=== PATIENT | female | born 1950 | race Caucasian/White ===

== ENCOUNTER 2024-01-15 14:57 | Outpatient (CLI) | payer MEDICARE, SELFPAY ==
--- NOTE | ~2024-01-15 | MM_ITS ---
EXAMINATION: MM screening anushka BI w rubén HISTORY: Screening mammogram TECHNIQUE: Craniocaudal and mediolateral oblique 3-D tomosynthesis images were obtained and synthetic 2-D images were generated. CAD analysis was submitted and interpreted. COMPARISON: No prior mammogram is available for comparison at this institution. BREAST PARENCHYMAL COMPOSITION:Not Dense. There are scattered areas of fibroglandular density. FINDINGS: No suspicious mass, calcification, or architectural distortion are identified in either brady ast to suggest malignancy. There has been no suspicious interval change. IMPRESSION: No mammographic evidence of malignancy. Recommend routine screening mammography in one year. BI-RADS Category 1: Negative Reviewed, dictated and finalized at location .
== END 2024-01-15 14:58 ==
LOC: MICIMG 14:58
PROVIDERS: PCP Family Medicine; Visit Provider Family Medicine
DX: Z12.31 Encounter for screening mammogram for malignant neoplasm of breast (principal)
CPT/HCPCS: 77063; 77067

== ENCOUNTER 2024-02-15 14:33 | Outpatient (CLI) | payer MEDICARE, SELFPAY ==
--- NOTE | ~2024-02-15 | DEXA_ITS ---
Bone Density Report Name: PITER JONES Age: 73 Sex: Female Ethnicity: White Date of : 1950 Indication: postmenopausal; screening for osteoporosis; parental hip fracture; height loss; hysterectomy; Referring Provider: CELY MIRZA Study: Bone densitometry was performed. Exam Date: February 15, 2024 Accession number: [id number] Bone Density: Region BMD T-score Z-score Classification AP Spine(L1-L4) 1.004 -0.4 1.8 Normal Femoral Neck (Left) 0.765 -0.8 1.1 Normal Total Hip (Left) 1.003 0.5 2.1 Normal Femoral Neck (Right) 0.680 -1.5 0.3 Osteopenia Total Hip (Right) 0.905 -0.3 1.3 Normal Total Hip Mean 0.954 0.1 1.7 Normal World Health Organization criteria for BMD impression classify patients as: Normal (T-score at or above -1.0), Osteopenia (T-score between -1.0 and -2.5), or Osteoporosis (T-score at or below -2.5). 10-year Fracture Risk(1): Major Osteoporotic Fracture 16% Hip Fracture 4.0% Reported Risk Factors: [place] (), Neck BMD=0.680, BMI=29.9, parental fracture (1) FRAX(R) Version 3.08. Fracture probability calculated for an untreated patient. Fracture probability may be lower if the patient has received treatment. Clinical Information Provided by Patient: Parent has had a hip fracture Has used the following medications: Vitamin D, Calcium Has the following medical conditions: Hysterectomy Patient maximum height was 66.0 Menopause Age: 50 No regular weight bearing exercise Drinks caffeinated beverages Onset of menses at age 18 Number of children 3 Impression: The patient has low bone mass, based on the Right Femoral Neck T-score. The patient has an estimated ten-year risk of hip fracture of 4% and an estimated ten-year risk of major fracture of 16%, based on the WHO FRAX algorithm. The patient has risk factors, including: parental hip fracture. Discussion: BONE DENSITY IS LOW AT ONE OR MORE SKELETAL SITES. THE PATIENT'S BMD AND CLINICAL RISK FACTORS CONTRIBUTE TO THIS PATIENT'S INCREASED RISK OF FRACTURE. This patient's lowest T-score is low at one or more skeletal sites. It meets the World Health Organization's (WHO) criteria for ?low bone mass? (T-score between -1.0 and -2.5). The patient's 10-year risk of hip fracture as calculated by FRAX exceeds the threshold where pharmacological therapy is recommended by the National Osteoporosis Foundation (NOF). However, all treatment decisions require clinical judgment and consideration of individual patient factors, including patient preferences, comorbidities, previous drug use, risk factors not captured in the FRAX model (e.g., frailty, falls, vitamin D deficiency, increased bone turnover, interval significant decline in bone density) and possible under or overestimation of fracture risk by FRAX. T
== END 2024-02-15 14:34 | disposition home or self-care (01) ==
PROVIDERS: PCP Family Medicine; Visit Provider Family Medicine
DX: M85.89 Other specified disorders of bone density and structure, multiple sites (principal); Z78.0 Asymptomatic menopausal state; Z13.820 Encounter for screening for osteoporosis
CPT/HCPCS: 77080

== ENCOUNTER 2024-02-27 07:56 | Outpatient (CLI) | payer MEDICARE, SELFPAY ==
[2024-02-27 12:50] LABS: Basophils Absolute Auto 0.1 K/mm3 (0.0-0.1); Eosinophils Absolute Auto 0.3 K/mm3 (0-0.3); Hematocrit 44.6 % (37.0-47.0); Immature Granulocyte Absolute 0.02 K/mm3 (0.00-0.031); Immature Granulocyte Percent A 0.4 % (0-0.5); Lymphocytes Absolute Auto 1.61 K/mm3 (0.9-3.2); Lymphocytes Percent Auto 30.8 % (18.3-44.2); Mean Corpuscular HGB Conc 33.6 g/dl (32-36); Mean Corpuscular Hemoglobin 31.6 pg (26-34); Mean Corpuscular Volume 94.1 fl (80-100); Mean Platelet Volume 11.6 fl (7.4-10.4); Monocytes Absolute Auto 0.3 K/mm3 (0.1-0.6); Monocytes Percent Auto 5.7 % (2.6-8.5); Neutrophils Percent Auto 57.1 % (45.5-73.1); Platelet Count Result 155 k/mm3 (150-375); Red Blood Count 4.74 M/mm3 (4.2-5.4); Red Cell Distribution Width 13.8 % (11.5-14.5); White Blood Count 5.2 K/mm3 (4.5-10.0)
[2024-02-27 12:59] LABS: Alanine Aminotransferase 331 U/L (6-35); Albumin Level 4.2 g/dL (3.5-5.1); Alkaline Phosphatase 90 U/L (38-126); Anion Gap 8 mmol/L (4-12); Aspartate Amino Transferase 163 U/L (14-36); Bilirubin,Total 0.5 mg/dL (0.2-1.3); Blood Urea Nitrogen 22 mg/dL (7-17); Calcium 9.5 mg/dL (8.4-10.2); Carbon Dioxide 28 mmol/L (22-30); Chloride 104 mmol/L (98-107); Cholesterol 146 mg/dL (0-200); Estimated Glomerular Filt Rate > 60; Glucose 95 mg/dL (65-110); HDL Direct 45 mg/dL; Potassium 3.9 mmol/L (3.4-5.0); Sodium 140 mmol/L (137-145); Triglycerides 94 mg/dL (<150)
[2024-02-27 13:09] LABS: LDL Cholesterol Direct 81 mg/dL
[2024-02-29 13:20] LABS: Hepatitis B Surface Antigen Negative (Negative)
[2024-02-29 13:26] LABS: HAV RESULT Negative (Negative); Hepatitis B Core IgM Result Negative (Negative)
[2024-02-29 13:38] LABS: Hepatitis C Virus Antibody Negative (Negative)
== END 2024-02-27 07:57 | disposition home or self-care (01) ==
PROVIDERS: Nurse Practitioner Family; PCP Family Medicine; Visit Provider Family Medicine
DX: R79.89 Other specified abnormal findings of blood chemistry (principal)
CPT/HCPCS: 36415; 80053; 80061; 80074; 82248; 82728; 85025

== ENCOUNTER 2024-02-27 08:13 | Outpatient (CLI) | payer MEDICARE, SELFPAY ==
--- NOTE | ~2024-02-27 | US_ITS ---
Limited ABDOMINAL ULTRASOUND Ordering provider: Courtney Nobles MD History: . elevated lfts . Comparison: None. FINDINGS: LIVER: Normal size and echotexture. No focal hepatic lesions or perihepatic fluid collections are summer ntified. Multiple cysts are noted with the largest measures 3.8 x 3.1 x 3 cm. Normal portal vein flow. GALLBLADDER: Unremarkable. No evidence for stones, sludge, gallbladder wall thickening or pericholecy stic fluid collections. A negative sonographic Loyd's sign was noted. BILIARY DUCTS: No evidence for intra or extrahepatic biliary dilation. Common bile duct measures 5.1 mm in diameter which is within normal limits. PANCREAS: Normal echotexture and size of the visualized portion. Tail is not demonstrated.. IMPRESSION: Multiple hepatic cysts otherwise, Unremarkable limited ultrasound of the abdomen. Reviewed, dictated and finalized at location A. IMPRESSION: Multiple hepatic cysts otherwise, Unremarkable limited ultrasound of the abdome n.
== END 2024-02-27 08:14 ==
PROVIDERS: PCP Family Medicine; Visit Provider Family Medicine
DX: R94.5 Abnormal results of liver function studies (principal)
CPT/HCPCS: 76705

== ENCOUNTER 2025-03-12 13:33 | Outpatient (CLI) | payer MEDICARE, SELFPAY ==
--- NOTE | ~2025-03-12 | MM_ITS ---
EXAMINATION: MM screening anushka BI w rubén HISTORY: Screening TECHNIQUE: Craniocaudal and mediolateral oblique 3-D tomosynthesis images were obtained and synthetic 2-D images were generated. CAD analysis was submitted and interpreted. COMPARISON: 01/15/2024 BREAST PARENCHYMAL COMPOSITION: There are scattered areas of fibroglandular density. FINDINGS: There is no evidence of suspicious mass, calcification, or architectural distortion to suggest malignancy in either breast. IMPRESSION: 1. No mammographic evidence of malignancy. 2. Recommend routine screening mammography in one year. BI-RADS Category 1: Negative Reviewed, dictated and finalized at location B.
== END 2025-03-12 13:34 | disposition home or self-care (01) ==
LOC: CHSIMG 13:35
PROVIDERS: PCP Family Medicine; Visit Provider Family Medicine
DX: Z12.31 Encounter for screening mammogram for malignant neoplasm of breast (principal)
CPT/HCPCS: 77063; 77067

== ENCOUNTER 2025-03-25 15:56 | Emergency (ER) | payer MEDICARE, SELFPAY ==
[2025-03-25 16:05] VITALS: BP 117/91; PULSE 92; RESP 16; TEMP 36.1; O2SAT 100
--- NOTE | 2025-03-25 16:18 | ED.FALL ---
HPI - Fall General Chief Complaint: Fall Stated Complaint: FALL Time Seen by Provider: 03/25/25 16:10 Mode of arrival: ambulatory Limitations: no limitations History of Present Illness HPI Narrative: 74-year-old female presents with concern of for fall. Reports prior to arrival she fell off a 4 ft retaining wall. Reports neck pain and left hand pain. She denies loss of consciousness. She denies any nose bleed, dental pain or loose teeth. MD complaint: fall Related Data Home Medications ?Medication ?Instructions ?Recorded ?Confirmed ?Last Taken ?Type ascorbic acid (vitamin C) 1,000 mg 1 g PO DAILY 06/19/23 10/30/24 Unknown History capsule aspirin 81 mg tablet,delayed 81 mg PO DAILY 06/19/23 10/30/24 Unknown History release (Adult Aspirin Regimen) calcium carbonate (Calcium 500) 500 mg PO DAILY 06/19/23 10/30/24 Unknown History cholecalciferol (vitamin D3) 50 50 mcg PO DAILY 06/19/23 10/30/24 Unknown History mcg (2,000 unit) capsule coenzyme Q10 200 mg capsule (Co 200 mg PO DAILY 06/19/23 10/30/24 Unknown History Q-10) zinc gluconate 30 mg tablet 30 mg PO DAILY 06/19/23 10/30/24 Unknown History Allergies Allergy/AdvReac Type Severity Reaction Status Date / Time codeine AdvReac Intermediate Nausea Verified 03/25/25 16:31 Review of Systems Review of Systems: CONSTITUTIONAL: Denies malaise, chills, sweats, or fever. EYES: Denies visual changes ENT: Denies nose bleed SKIN: Reports abrasions to the face MUSCULOSKELETAL: Reports neck pain and left hand pain NEUROLOGIC: Denies numbness, weakness All systems reviewed & are unremarkable except as noted in HPI and below PMFSH Surgical History Surgical History (Updated 10/30/24 @ 09:27 by Liya Acosta MA) History of knee replacement right 03/05/2024 left 08/20/2024 H/O bilateral oophorectomy H/O: hysterectomy Family History Family History Mother Carcinoma of colon Diabetes mellitus Hypertension Father Depression Heart disease Grandparent Alcohol abuse Diabetes mellitus Hypertension Heart disease Social History Social History (Reviewed 10/30/24 @ 09:27 by NELL Ford Social History: quit 1979 Smoking status: Former smoker Smoking end date: 07/16/79 Alcohol intake: current Alcohol use details: rarely Substance use: never Substance use type: does not use Lack of Transportation: No Lack of Food: Sometimes True Current Housing: I Have Housing Concerned About Future Housing: No Difficulty Paying Gas/Electric Bills: No Difficulty Paying for Meds: No Currently Unemployed: No Education: Bachelor's Degree Difficulty w/ Childcare or Family Care: No Living arrangements: with family Comments At time of signature, agree with nursing past medical, surgical, social and family history. There is no relevant family history pertinent to the presenting complaint Exam Narrative: GENERAL: Well-appearing, well-nourished, and in no acute distress. HEAD: Normocephalic, atraumatic. EYES: PERRLA, sclera clear, and EOMI. ENT: Nares clear, no epistaxis. NECK: No visible trauma CHEST: No respiratory distress. Speaks in full sentences. HEART: Regular rate and rhythm. EXTREMITIES: Left hand has Grossly Normal range of motion., Normal strength and sensation. Ecchymosis noted to the right dorsal hand SKIN: Warm, dry, no visible rash. Abrasions noted to the face NEURO: Alert and oriented x3. PSYCH: Normal mood and affect Course Course Emergency Course: Patient is aware of, understands and agrees to be transferred to the emergency room. EMS offered, patient agrees to proceed directly to the emergency department. Portions of this record may have been created with voice recognition software Level of Care: Express Care Visit Vital Signs Vital signs: Vital Signs Temperature 96.9 F L 03/25/25 16:05 Pulse Rate 92 03/25/25 16:05 Respiratory Rate 16 03/25/25 16:05 Blood Pressure 117/91 H 03/25/25 16:05 Pulse Oximetry 100 03/25/25 16:05 Temperature 96.9 F L 03/25/25 16:05 Pulse Rate 92 03/25/25 16:05 Respiratory Rate 16 03/25/25 16:05 Blood Pressure 117/91 H 03/25/25 16:05 Pulse Oximetry 100 03/25/25 16:05 Reviewed. Transfer Transfered to: [facility] Transportation: Other (Private vehicle) Transfer rationale: Fall, neck pain Accepting physician: Milad MDM - Fall MDM Narrative Medical decision making narrative: I evaluated this patient in the [facility] care. History is obtained from patient who is an independent historian and physical exam was performed.? Available medical records were reviewed. ? Patient is in no acute distress, stable for transfer to emergency room Critical Care Time Critical Care Time Critical Care Time: No Discharge Plan Discharge Clinical Impression: Neck pain Patient Disposition: Acute Care Hospital Condition: Stable Patient Language: Greenlandic Prescriptions: No Action aspirin [Adult Aspirin Regimen] 81 mg tablet,delayed release (DR/EC) 81 mg PO DAILY coenzyme Q10 [Co Q-10] 200 mg capsule 200 mg PO DAILY ascorbic acid (vitamin C) 1,000 mg capsule 1 g PO DAILY calcium carbonate [Calcium 500] 500 mg calcium (1,250 mg) tablet,chewable 500 mg PO DAILY zinc gluconate 30 mg tablet 30 mg PO DAILY cholecalciferol (vitamin D3) 50 mcg (2,000 unit) capsule 50 mcg PO DAILY lisinopril 5 mg tablet 5 mg PO DAILY Qty: 90 1RF rosuvastatin 5 mg tablet See Rx Instructions .ROUTE .COMPLEX Qty: 90 0RF Dose Instruction: Take 1 tablet by mouth once daily Rx Instructions: Take 1 tablet by mouth once daily sertraline 50 mg tablet 50 mg PO DAILY Qty: 90 1RF Follow-up/Referrals: Courtney Nobles MD [Primary Care Provider, [facility]] Time of Disposition: 16:37
== END 2025-03-25 16:20 | disposition short-term general hospital (02) ==
PROVIDERS: Emergency Provider Nurse Practitioner; PCP Family Medicine
DX: M54.2 Cervicalgia (principal); Z79.82 Long term (current) use of aspirin; Z96.653 Presence of artificial knee joint, bilateral; Z87.891 Personal history of nicotine dependence
CPT/HCPCS: 99213; G0463; L0140

== ENCOUNTER 2025-03-25 16:39 | Emergency (ER) | payer MEDICARE, SELFPAY ==
--- OUTSIDE RECORDS SUMMARY | 2020-09-23 05:01 | XMS_ITS | Continuity of Care Document ---
Author Organization [facility] Address [address] [place] [address] Care Team Providers Care Chief Communications Officer Name Role Phone Halie Choi MD Unavailable Unavailable Allergies, Adverse Reactions, Alerts Substance Reaction Status Criticality No Known Allergies Active No Inform ation Medications Medication Instructions Dosage Effective Dates (start - stop) Status Comments lisinopril 2.5 mg tablet take tablet by oral route every day Patient needs appointment for further refills - Active sertraline 50 mg tablet take 1 tablet by oral route every morning 50 MG - Active alprazolam 0.25 mg tablet take 1 tablet by oral route every day as needed 0.25 MG - Active Procedures Procedure Date Offic/outpt E&m Estab Advanced Directives Documented 19 Offic/outpt E&m Estab Offic/outpt E&m Estab Echo Trans Professional Offic/outpt E&m Estab Offic/outpt E&m New Ecg-routine 12 Lead; W/intrpt 8 Advance Directives Directive Yes / No Effective Date File Name No Information Encounters Encounter Description Practice Location Reason(s) For Visit Diagnoses Date Provider Providers Copied on Encounter [facility], [address] [place] [address], [address], [facility] No Information 1 Steph Ambrose. [address] [facility], [address], [place], [address], [place]. tel:[phone] [facility], [address] [place] [address], [address], [facility] No Information 0 Tessalee Meechai. [address] [facility], [address] [place] [address], [address], [place]. tel:[phone] Offic/outpt E&m [facility], [address] [place] [address], [facility], [facility] *Hypertens ion (chief complaint) Cardiovasc ular Review (chief complaint) HTN (hypertension) , benignAtypical chest painAbnormal ECGOther specified counseling 8- 9 Tessalee Meechai. [address] [facility], [address] [place] [address], [address], [place]. tel:[phone] Referring Provider: Estrellita Leija, [address] [place] [address] [place] [address]. tel:[phone] Offic/outpt E&m [facility], [address] [place] [address], [facility], [facility] Chest Pain (chief complaint) Cardiovasc ular Review (chief complaint) HTN (hypertension) , benignAtypical chest painAbnormal ECG 9 Tessalee Meechai. [address] [facility], [address], [address], [place]. tel:[phone] Referring Provider: Estrellita Leija, [address] [place] [address] [place] [address]. tel:[phone] Offic/outpt E&m [facility], [address] [place] [address], [facility], [place] [facility] *Test Follow Up (chief complaint) Cardiovasc ular Review (chief complaint) HTN (hypertension) , benignAtypical chest painAbnormal ECG 0 8 Tessalee Meechai. [address] [facility], [address] [place] [address], [address], [place]. tel:[phone] Referring Provider: Estrellita Leija, [address] [place] [address] [address] [facility], [place], [place]. tel:[phone] [facility], [address] [place] [address], [facility], [facility] No Information 8 Brandon Pinedo. [address] [facility], [address] [place] [address], [facility], . tel:[phone] Referring Provider: Estrellita Leija, [address] [place] [address] [address], [place]. tel:[phone] Offic/outpt E&m [facility], [address] [place] [address], [address] [place] [address] Office *Hypertens ion (chief complaint) general (chief complaint) Abnormal ECGAtypical chest painHTN (hypertension) , benign Mar- 8 Tessalee Meechai. [address] [facility], [address] [place] [address], [facility], . tel:[phone] Referring Provider: Halie Choi, [address] [facility] [address] [place] [address], [facility]. tel:[phone] Offic/outpt E&m [facility], [address] [place] [address], [address] [place] [address] Office *Abnormal ECG (chief complaint) general (chief complaint) Abnormal ECGAtypical chest painHTN (hypertension) , benign 8 Tessalee Meechai. [address] [facility], [address] [place] [address], [facility], . tel:[phone] Referring Provider: Estrellita Leija, [address] [place] [address] [address], [place], [place]. tel:[phone] Family History Family Member Type Diagnosis Age At Onset Problem (finding) No family hist ory of Coronary artery disease, premature Mother Problem (finding) hypertension Father Problem (finding) Myocardial infarction Father Problem (finding) Bypass Payers Payer name Insurance type Covered libertarian ID Authoriza tijuany(s) [facility] So lution [id number] CI [id number] Social History Type Description Quantity Date Captured Comments Alcohol Use Details Unknown Caffeine Use Details Unknown Tobacco Use Status No Information Smoking Status No Information Sex Female Chief Complaint And Reason For Visit No Information Reason For Referral Reason For Referral No Information Plan Of Treatment Date Type Action Status Referral Ordered: Estrellita Gaviria -[facility] : Family Medicine (related to HTN (hypertension), benign) ordered Referral Referred To: Estrellita Gaviria [address] [facility]
[address] [place], [place] [id number] Ordered: Referrals: [facility] Phys[facility] : Family Medicine. Estrellita Gaviria ordered History Of Present Illness Encounter Date Complaint History Of Prese nt Illness *Hypertension Patient doing we ll. Family stresses present. Discussed stress test in detail. She is coping with family issues. Cardiovascular Review She has goff d no chest discomfort suggestive of ischemia. The patient denies orthopnea, PND, VALDIVIA, or edema. Ms. Rivera has not had palpitations, syncope or near syncope. She denies claudication. There is no discoloration or ulceration of the lower extremities. She has had no TIA or stroke-like symptoms. The patient has no symptoms attributable to valvular heart disease. Chest Pain The patient comp lains of chest discomfort. The discomfort is located in the parasternal area. The patient describes the pain as sharp and pressure. She states exertion and lying down makes it worse. The pain is relieved by changing positions. The discomfort occurs at rest. It is associated with dyspnea. Pertinent negatives include nausea and diaphoresis. Cardiovascular Review Ms. Juan herrera has not had palpitations, syncope or near syncope. She denies claudication. There is no discoloration or ulceration of the lower extremities. She has had no TIA or stroke-like symptoms. The patient has no symptoms attributable to valvular heart disease. *Test Follow Up Echo-06/18/2018Martine bolanos was very nervous about echo results. After going over results, she feels better. She has atypical chest pain worse when laying on the L side and resolves when laying on the R. She hasn't been exercising because of too much else going on. Cardiovascular Review She has goff d no chest discomfort suggestive of ischemia.The patient denies orthopnea, PND, VALDIVIA, or edema. Ms. Rivera has not had palpitations, syncope or near syncope. She denies claudication. There is no discoloration or ulceration of the lower extremities. She has had no TIA or stroke-like symptoms. The patient has no symptoms attributable to valvular heart disease. general She has had no c hest discomfort suggestive of ischemia.The patient denies orthopnea, PND, VALDIVIA, or edema. Ms. Rivera has not had palpitations, syncope or near syncope. She denies claudication. There is no discoloration or ulceration of the lower extremities. She has had no TIA or stroke-like symptoms. The patient has no symptoms attributable to valvular heart disease. *Hypertension She feels a lot better today. No more chest pain. She exercises on a bike with no symptoms. She does not want to do stress testing at this point. I told her that I recommend stress testing as normal cardiac evaluation. BP at home also running 130-140 but as low as 107 once. general She has had no c hest discomfort suggestive of ischemia.The patient denies orthopnea, PND, VALDIVIA, or edema. Ms. Rivera has not had palpitations, syncope or near syncope. She denies claudication. There is no discoloration or ulceration of the lower extremities. She has had no TIA or stroke-like symptoms. The patient has no symptoms attributable to valvular heart disease. *Abnormal ECG 67 y/o woman who presents with atypical chest pain with radiation down the L arm. Her primary noted an abnormal ECG and recommended that she see a street car mechanic. The patient exercises on a stationary bike regularly and develops sharp chest pain with associated L arm numbness. This occurs regularly but she just pushes through it. She is sweaty but there is no SOB or N/V. ECG with NSTWA, with some minor ST depression. Functional Status Date Functional Assessmen t No Information Instructions Date Instruction Additional Infor mation No Information Assessments Type Assessment Date No Information Patient Care Teams Name Effective Dates (start - stop) Status Members No Information
--- OUTSIDE RECORDS SUMMARY | 2020-09-23 05:01 | XMS_ITS | Continuity of Care Document ---
Author Organization [facility] Address [address] [place] [address] Care Team Providers Care Dye Machine Operator Name Role Phone Halie Choi MD Unavailable [...] Providers Copied on Encounter [facility], [address] [place] [address], [address], [facility] Office No Information 1 Steph Ambrose. [address] [facility], [address], [place], [address], [place]. tel:[phone] [facility], [address] [place] [address], [address], [facility] Office No Information 0 Tessalee Meechai. [address] [facility], [address] [place] [address], [address], [place]. tel:[phone] Offic/outpt E&m [facility], [address] [place] [address], [facility] [place] [facility], [facility] Office *Hypertens ion (chief complaint) Cardiovasc ular Review (chief complaint) HTN (hypertension) , benignAtypical chest painAbnormal ECGOther specified counseling 8- 9 Tessalee Meechai. [address] [facility], [address] [place] [address], [address], [place]. tel:[phone] Referring Provider: Estrellita Leija, [address] [place] [address] [place] [address]. tel:[phone] Offic/outpt E&m [facility], [address] [place] [address], [facility] [place] [facility], [facility] Office Chest Pain (chief complaint) Cardiovasc ular Review (chief complaint) HTN (hypertension) , benignAtypical chest painAbnormal ECG 9 Tessalee Meechai. [address] [facility], [address], [address], [place]. tel:[phone] Referring Provider: Estrellita Leija, [address] [place] [address] [place] [address]. tel:[phone] Offic/outpt E&m [facility], [address] [place] [address], [facility] [place] [facility], [place] [facility] *Test Follow Up (chief complaint) Cardiovasc ular Review (chief complaint) HTN (hypertension) , benignAtypical chest painAbnormal ECG 0 8 Tessalee Meechai. [address] [facility], [address] [place] [address], [address], [place]. tel:[phone] Referring Provider: Estrellita Leija, [address] [place] [address] [address] [facility]note 2], [place], [place]. tel:[phone] [facility], [address] [place] [address], [facility] [place] [facility], [facility] No Information 8 Brandon Pinedo. [address] [facility], [address] [place] [address], [facility], . tel:[phone] Referring Provider: Estrellita Leija, [address] [place] [address] [address], [place]. tel:[phone] Offic/outpt E&m [facility], [address] [place] [address], [address] [place] [address] Office *Hypertens ion (chief complaint) general (chief complaint) Abnormal ECGAtypical chest painHTN (hypertension) , benign Mar- 8 Tessalee Meechai. [address] [facility], [address] [place] [address], [facility], . tel:[phone] Referring Provider: Halie Choi, [address] [facility] [address] [place] [address], [facility]. tel:[phone] Offic/outpt E&m [facility], [address] [place] [address], [address] [place] [address] Office *Abnormal ECG (chief complaint) general (chief complaint) Abnormal ECGAtypical chest painHTN (hypertension) , benign 8 Tessalee Meechai. [address] [facility], [address] [place] [address], [facility], . tel:[phone] Referring Provider: Estrellita Leija, [address] [place] [address] [address], [place], [place]. tel:[phone] Family History Family Member Type Diagnosis Age At Onset Problem (finding) No family hist ory of Coronary artery disease, premature Mother Problem (finding) hypertension Father Problem (finding) Myocardial infarction Father Problem (finding) Bypass Payers Payer name Insurance type Covered constitution party ID Authoriza tijuany(s) [facility] So lution [id number] CI [id number] Social History Type Description Quantity Date Captured [...] ordered Referral Referred To: Estrellita Gaviria [address] [facility]
[address] [place], [place] [id number] Ordered: Referrals: Allopathic & Osteopathic Physicians : [...] to valvular heart disease. *Test Follow Up Echo-06/18/2018Matrine bolanos was very nervous about echo results. [...] ECG and recommended that she see a heel sander. The patient exercises on a stationary bike [...]
--- NOTE | ~2025-03-25 | CT_ITS ---
EXAMINATION: CT brain wo con DATE: 03/25/2025 17:14 INDICATION: Fall. Hit head TECHNIQUE: Computed tomography (CT) of the head was performed without intravenous contrast. The dose-length product was 681.00 mGy-cm. COMPARISON: None FINDINGS: No acute intracranial hemorrhage. No mass effect. No midline shift. No hydrocephalus. No skull fracture. Visualized paranasal sinuses and mastoid air cells are clear. IMPRESSION: 1. No acute intracranial hemorrhage. No mass effect. Reviewed, dictated and finalized at location Q.
--- NOTE | ~2025-03-25 | XR_ITS ---
XR knee LT 3V 03/25/2025 17:18 Indication: Left knee pain Procedure: 3 views left knee Comparison: No prior studies for comparison. Findings: Small joint effusion. Left total knee arthroplasty well seated. No acute fracture or traumatic malalignment. Impression: 1: No acute fracture. Reviewed, dictated and finalized at location O. Impression: 1: No acute fracture.
--- NOTE | ~2025-03-25 | XR_ITS ---
XR hand LT min 3V 03/25/2025 17:18 Indication: Left hand pain Procedure: 3 views left hand Comparison: No prior studies for comparison. Findings: There is polyarticular osteoarthritis. No fracture, subluxation or dislocation. Degenerative change most advanced at the first carpal metacarpal joint. No focal soft tissue abnormality. No foreign bodies. Impression: 1: No acute fracture. Reviewed, dictated and finalized at location O. Impression: 1: No acute fracture.
--- NOTE | ~2025-03-25 | XR_ITS ---
XR hand LT min 3V 03/25/2025 18:06 INDICATION: Status post fall. Pain. PROCEDURE: 3 views left hand COMPARISON: No prior studies for comparison. FINDINGS: Fracture, dislocation or subluxation is not identified. There is moderate-severe polyarticular osteoarthritis. The soft tissues appear within normal limits. No foreign bodies are identified. IMPRESSION: 1: NO ACUTE BONE OR JOINT ABNORMALITY IDENTIFIED. Reviewed, dictated and finalized at location O.
--- NOTE | ~2025-03-25 | XR_ITS ---
XR knee RT 3V 03/25/2025 17:18 Indication: Status post fall. Knee pain. Procedure: 3 views right knee Comparison: No prior studies for comparison. Findings: No acute fracture, subluxation or dislocation. There is a right total knee arthroplasty which is well seated without evidence for loosening. There is a moderate joint effusion. Impression: 1: Moderate joint effusion. No fracture. Reviewed, dictated and finalized at location O. Impression: 1: Moderate joint effusion. No fracture.
--- NOTE | ~2025-03-25 | CT_ITS ---
EXAMINATION: CT facial & cervical spine without DATE: 03/25/2025 17:14 INDICATION: Fall. Nasal pain. . TECHNIQUE: Computed tomography (CT) of the maxillofacial region and cervical spine was performed without intravenous contrast. Reformatted images were obtained. The dose-length product was 366.95 mGy-cm. COMPARISON: None FINDINGS: MAXILLOFACIAL CT: No fracture. No dislocation. Paranasal sinuses are clear. Right mastoid air cells are clear. Left mastoid air cells are clear. Dental hardware with surrounding artifact which slightly limits evaluation. CT appearance of the orbits and globes are unremarkable. CERVICAL SPINE CT: No compression fracture in the cervical spine. Straightening of the normal cervical lordosis. Grade 1 anterolisthesis of C2 on C3. Predental space is within normal limits. No prevertebral soft tissue swelling. Grade 1 anterolisthesis of C4 on C5 and C5 on C6 and C6 on C7. Lateral dental intervals are within normal limits. Mild to moderate degenerative change throughout the cervical spine. Evaluation of the spinal canal contents and bilateral neuroforamen is limited due to CT technique. There are a few nonenlarged, nonspecific lymph nodes scattered throughout the soft tissues of the neck. IMPRESSION: 1. Unremarkable maxillofacial CT. 2. No compression fracture in the cervical spine. 3. Straightening of the normal cervical lordosis. 4. Grade 1 anterolisthesis of C2 on C3, C4 and C5, C5 and C6 and C6 on C7. 5. Mild to moderate degenerative change throughout the cervical spine. 6. There are a few nonenlarged, nonspecific lymph nodes scattered throughout the soft tissues of the neck. If symptoms persist or worsen, consider a short-term follow-up study or MRI imaging for further assessment. Reviewed, dictated and finalized at location Q. IMPRESSION: 1. Unremarkable maxillofacial CT. 2. No compression fracture in the cervical spine. 3. Straightening of the normal cervical lordosis. 4. Grade 1 anterolisthesis of C2 on C3, C4 and C5, C5 and C6 and C6 on C7. 5. Mild to moderate degenerative change throughout the cervical spine. 6. There are a few nonenlarged, nonspecific lymph nodes scattered throughout th e soft tissues of the neck. If symptoms persist or worsen, consider a short-term follow-up study or MRI adelaida ging for further assessment.
[2025-03-25 16:46] VITALS: BP 146/71; PULSE 86; RESP 16; TEMP 36.6; O2SAT 97
--- NOTE | 2025-03-25 16:54 | ED.FALL ---
HPI - Fall General Chief Complaint: Fall <Shant Duffy APRN - Last Filed: 03/25/25 16:59> Stated Complaint: FALL, FACIAL INJURY SENT FROM [facility] <Shant Duffy APRN - Last Filed: 03/25/25 16:59> Time Seen by Provider: 03/25/25 17:11 <Shant DAgustina Duffy APPLIED MATHEMATICIAN - Last Filed: 03/25/25 16:59> Focused HPI: 74-year-old female presents to the ER complaining of fall about 1 hour ago. Patient fell approximately 3 ft up at home while outside on bricks. Patient fell on her head and face on the grass. Patient denies any loss of consciousness. Patient reported mild headache but took Tylenol prior to arrival in said this headache has subsided. Patient denies any lightheadedness, vision changes, double vision, nausea, vomiting, chest pain, difficulty breathing, or any other symptoms. Patient has also complained of neck pain, left hand pain and bilateral knee pain. Patient initially went to urgent care was sent here for further evaluation. Patient is placed in a C-collar at urgent care prior to arrival. Patient denies taking any blood thinners. GENERAL: Well-appearing, well-nourished, and in no acute distress. C-collar in place. HEAD: Normocephalic, external nose is edematous and tender to palpate. Dried blood and abrasion present under chin. NOSE: External nose is edematous no obvious deformity. Nasal turbinates mildly edematous without evidence of septal hematoma. No rhinorrhea or drainage present. CHEST: Respiratory rate normal, respiratory effort nonlabored, no respiratory distress HEART: Regular rate and rhythm.? NEURO: ?Alert and oriented x3. NECK: Cervical point tenderness. No crepitus or step-offs. BACK: No lumbar or thoracic point tenderness, crepitus, or step-offs. No deformity. No CVA tenderness. MSK: Right hand: Bruising and swelling present the 2nd and 3rd metacarpal joints. Noise deformity. No redness. Right radial pulse 2 +and palpable, neurovascular status intact distal injury. Capillary refill less than 2 seconds. Normal sensation. Bilateral knees: There tender throughout. No obvious deformity, bruising or redness, swelling. Neurovascular status intact distal injury. Patient screened in triage and initial orders placed.? ?Additional care and disposition to be based upon?diagnostic testing and treatment. <Shant Duffy APRN - Last Filed: 03/25/25 16:59> Related Data Home Medications: Home Medications ?Medication ?Instructions ?Recorded ?Confirmed ?Last Taken ?Type ascorbic acid (vitamin C) 1,000 mg 1 g PO DAILY 06/19/23 10/30/24 Unknown History capsule aspirin 81 mg tablet,delayed 81 mg PO DAILY 06/19/23 10/30/24 Unknown History release (Adult Aspirin Regimen) calcium carbonate (Calcium 500) 500 mg PO DAILY 06/19/23 10/30/24 Unknown History cholecalciferol (vitamin D3) 50 50 mcg PO DAILY 06/19/23 10/30/24 Unknown History mcg (2,000 unit) capsule coenzyme Q10 200 mg capsule (Co 200 mg PO DAILY 06/19/23 10/30/24 Unknown History Q-10) zinc gluconate 30 mg tablet 30 mg PO DAILY 06/19/23 10/30/24 Unknown History <Shant Duffy APRN - Last Filed: 03/25/25 16:59> Allergies/Adverse Reactions: Allergies Allergy/AdvReac Type Severity Reaction Status Date / Time codeine AdvReac Intermediate Nausea Verified 03/25/25 16:31 <Shant Duffy APRN - Last Filed: 03/25/25 16:59> Review of Systems Review of Systems: All systems reviewed & are unremarkable except as noted in HPI and below <Tita Berkowitz PA-C - Last Filed: 03/25/25 18:28> [facility] Surgical History Surgical History: Surgical History (Updated 10/30/24 @ 09:27 by Liya Acosta MA) History of knee replacement right 03/05/2024 left 08/20/2024 H/O bilateral oophorectomy H/O: hysterectomy <Shant Duffy APRN - Last Filed: 03/25/25 16:59> Family History Family History: Family History Mother Carcinoma of colon Diabetes mellitus Hypertension Father Depression Heart disease Grandparent Alcohol abuse Diabetes mellitus Hypertension Heart disease <Shant Duffy APRN - Last Filed: 03/25/25 16:59> Social History Social History: Social History Social History: quit 1979 Smoking status: Former smoker Smoking end date: 07/16/79 Alcohol intake: current Alcohol use details: rarely Substance use: never Substance use type: does not use Lack of Transportation: No Lack of Food: Sometimes True Current Housing: I Have Housing Concerned About Future Housing: No Difficulty Paying Gas/Electric Bills: No Difficulty Paying for Meds: No Currently Unemployed: No Education: Bachelor's Degree Difficulty w/ Childcare or Family Care: No Living arrangements: with family <Shant Duffy APRN - Last Filed: 03/25/25 16:59> Exam Narrative: GENERAL: Well-appearing, well-nourished, and in no acute distress. HEAD: Normocephalic. Abrasions over the chin and nasal bridge EYES: PERRLA and EOMI. ENT: Nares clear, no rhinorrhea or epistaxis. Mucous membranes moist. Oropharynx without tonsillar hypertrophy exudate or other lesions. Bilateral TMs pearly tilley non-bulging NECK: Supple. No adenopathy or masses. C collar in place CHEST: Clear to auscultation. No respiratory distress. No wheezes rales or rhonchi HEART: Regular rate and rhythm. No murmur heard. Normal peripheral pulses. ABDOMEN: Soft, nontender, nondistended, normal active bowel sounds. EXTREMITIES: Normal range of motion. No edema or obvious deformity. SKIN: Warm, dry, no rash. NEURO: No focal deficits. Alert and oriented x3. Cranial nerves 2-12 grossly intact PSYCH: Normal mood and affect <Tita Berkowitz PA-C - Last Filed: 03/25/25 18:28> Course Course Emergency Course: Patient and family updated on workup and agrees with plan of care <Tita Berkowitz PA-C - Last Filed: 03/25/25 18:28> Vital Signs Vital signs: Vital Signs Temperature 97.9 F 03/25/25 16:46 Pulse Rate 86 03/25/25 16:46 Respiratory Rate 16 03/25/25 16:46 Blood Pressure 146/71 H 03/25/25 16:46 Pulse Oximetry 97 03/25/25 16:46 Oxygen Delivery Room Air 03/25/25 16:46 Temperature 97.9 F 03/25/25 16:46 Pulse Rate 82 03/25/25 18:09 Respiratory Rate 17 03/25/25 18:09 Blood Pressure 129/82 03/25/25 18:09 Pulse Oximetry 94 03/25/25 18:09 Oxygen Delivery Room Air 03/25/25 16:46 <Shant Duffy APRN - Last Filed: 03/25/25 16:59> Vital Signs Temperature 97.9 F 03/25/25 16:46 Pulse Rate 86 03/25/25 16:46 Respiratory Rate 16 03/25/25 16:46 Blood Pressure 146/71 H 03/25/25 16:46 Pulse Oximetry 97 03/25/25 16:46 Oxygen Delivery Room Air 03/25/25 16:46 Temperature 97.9 F 03/25/25 16:46 Pulse Rate 82 03/25/25 18:09 Respiratory Rate 17 03/25/25 18:09 Blood Pressure 129/82 03/25/25 18:09 Pulse Oximetry 94 03/25/25 18:09 Oxygen Delivery Room Air 03/25/25 16:46 <Tita Berkowitz PA-C - Last Filed: 03/25/25 18:28> MDM - Fall MDM Narrative Medical decision making narrative: Patient presents the emergency department after a fall today with head injury, bilateral knee pain, left hand pain. Patient is neurologically intact. Her vitals are stable. CT brain, cervical spine, facial bones without acute findings. Bilateral knee x-rays without acute osseous abnormalities. Left hand x-ray without acute osseous abnormality. Patient updated on her workup and agrees with plan of care. She is to follow up with primary provider. She was given warnings to return to the ER <Tita Berkowitz PA-C - Last Filed: 03/25/25 18:28> Differential Diagnosis Differential diagnosis: Likely concussion without loss of consciousness and other (Subdural hematoma, facial bone fracture, cervical spine fracture, contusion, hand fracture) <Tita Berkowitz PA-C - Last Filed: 03/25/25 18:28> Imaging Data Radiologist's impression: ITS Impressions Head CT 03/25/25 17:16 IMPRESSION: 1. No acute intracranial hemorrhage. No mass effect. Hand X-Ray 03/25/25 17:19 Impression: 1: No acute fracture. Knee X-Ray 03/25/25 17:21 Impression: 1: No acute fracture. Knee X-Ray 03/25/25 17:21 Impression: 1: Moderate joint effusion. No fracture. Head/Cervical Spine/Facial Bones CT 03/25/25 17:25 IMPRESSION: 1. Unremarkable maxillofacial CT. 2. No compression fracture in the cervical spine. 3. Straightening of the normal cervical lordosis. 4. Grade 1 anterolisthesis of C2 on C3, C4 and C5, C5 and C6 and C6 on C7. 5. Mild to moderate degenerative change throughout the cervical spine. 6. There are a few nonenlarged, nonspecific lymph nodes scattered throughout the soft tissues of the neck. If symptoms persist or worsen, consider a short-term follow-up study or MRI imaging for further assessment. Hand X-Ray 03/25/25 18:07 IMPRESSION: 1: NO ACUTE BONE OR JOINT ABNORMALITY IDENTIFIED. <Tita Berkowitz PA-C - Last Filed: 03/25/25 18:28> Critical Care Time Critical Care Time Critical Care Time: No <Tita Berkowitz PA-C - Last Filed: 03/25/25 18:28> Discharge Plan Discharge Clinical Impression: Fall, Head injury, Contusion of hand <Shant Duffy APRN - Last Filed: 03/25/25 16:59> Patient Disposition: Home <Shant Duffy APRN - Last Filed: 03/25/25 16:59> Condition: Stable <Shant Duffy APRN - Last Filed: 03/25/25 16:59> Instructions: Head Injury (ED), Contusion in Adults (ED), Abrasion (ED) <Shant Duffy APRN - Last Filed: 03/25/25 16:59> Additional Instructions: Return to the emergency department if you experience fever, chest pain, shortness of breath, abdominal pain with nausea and vomiting, weakness, numbness, or any other symptoms that are concerning to you. Rest. Ice to the area. [id number] pain medication as needed Follow up with your primary care doctor <Shant Duffy APRN - Last Filed: 03/25/25 16:59> Patient Language: Turkmen <Shant Duffy APRN - Last Filed: 03/25/25 16:59> Prescriptions: No Action aspirin [Adult Aspirin Regimen] 81 mg tablet,delayed release (DR/EC) 81 mg PO DAILY coenzyme Q10 [Co Q-10] 200 mg capsule 200 mg PO DAILY ascorbic acid (vitamin C) 1,000 mg capsule 1 g PO DAILY calcium carbonate [Calcium 500] 500 mg calcium (1,250 mg) tablet,chewable 500 mg PO DAILY zinc gluconate 30 mg tablet 30 mg PO DAILY cholecalciferol (vitamin D3) 50 mcg (2,000 unit) capsule 50 mcg PO DAILY lisinopril 5 mg tablet 5 mg PO DAILY Qty: 90 1RF rosuvastatin 5 mg tablet See Rx Instructions .ROUTE .COMPLEX Qty: 90 0RF Dose Instruction: Take 1 tablet by mouth once daily Rx Instructions: Take 1 tablet by mouth once daily sertraline 50 mg tablet 50 mg PO DAILY Qty: 90 1RF <Shant Duffy, KANIKA - Last Filed: 03/25/25 16:59> Follow-up/Referrals: Courtney Nobles MD [Primary Care Provider, Family Practice] <Shant Duffy APRN - Last Filed: 03/25/25 16:59>
[2025-03-25 18:09] VITALS: BP 129/82; PULSE 82; RESP 17; O2SAT 94
== END 2025-03-25 18:32 | disposition home or self-care (01) ==
PROVIDERS: Emergency Provider Physician Assistant; PCP Family Medicine
DX: S00.81XA Abrasion of other part of head, initial encounter (principal); S00.31XA Abrasion of nose, initial encounter; S60.222A Contusion of left hand, initial encounter; Z96.653 Presence of artificial knee joint, bilateral; Z87.891 Personal history of nicotine dependence; Z90.710 Acquired absence of both cervix and uterus; Z90.722 Acquired absence of ovaries, bilateral; W17.89XA Other fall from one level to another, initial encounter; M47.812 Spondylosis without myelopathy or radiculopathy, cervical region
CPT/HCPCS: 70450; 70486; 72125; 73130; 73562; 99284; L0140

== ENCOUNTER 2025-06-18 16:54 | Emergency (ER) | payer MEDICARE, SELFPAY ==
--- NOTE | ~2025-06-18 | XR_ITS ---
EXAMINATION: XR chest 2V, 06/18/2025 17:06 [facility] HISTORY: cough, fever, SOB COMPARISON: No comparisons available. Technique: 2 views obtained. Findings: The lungs are clear, no effusion. No pneumothorax. Heart is normal size. Mediastinal and hilar contours are within normal limits. Bony thorax no acute abnormality. Impression: No acute cardiopulmonary abnormality. Reviewed, dictated and finalized at location P. [facility] Impression: No acute cardiopulmonary abnormality.
--- NOTE | 2025-06-18 16:56 | ECG_ITS ---
Test Date: 2025-06-18 17:17:58 Measurements Intervals [place] Rate: 75 P: 1 ND: 133 QRS: -24 QRSD: 101 T: -1 QT: 394 QTc: 441 Interpretive Statements SINUS RHYTHM INCOMPLETE RIGHT BUNDLE BRANCH BLOCK CANNOT R/O SEPTAL INFARCT, AGE INDETERMINATE BORDERLINE T WAVE ABNORMALITY- ANT/INF LEADS ABNORMAL ECG No previous ECG available for comparison Electronically Signed On 06-18-2025 19:41:11 CASE MAKING MACHINE OPERATOR by Etienne Chester D.O.
[2025-06-18 17:20] VITALS: BP 177/74; PULSE 83; RESP 18; TEMP 36.9; O2SAT 98
[2025-06-18 18:28] LABS: Hematocrit 46.0 % (37.0-47.0); Hemoglobin 15.7 g/dL (12.0-15.0); Immature Granulocyte Percent A 0.8 % (0-0.5); Lymphocytes Absolute Auto 0.98 K/mm3 (0.9-3.2); Mean Corpuscular HGB Conc 34.1 g/dl (32-36); Mean Corpuscular Hemoglobin 31.0 pg (26-34); Mean Corpuscular Volume 90.9 fl (80-100); Nucleated Red Blood Cells Absolute Auto 0.000 K/mm3 (0.0-0.012); Nucleated Red Blood Cells Perc 0.0 % (0.0-0.2); Platelet Count Result 198 k/mm3 (150-375); Red Blood Count 5.06 M/mm3 (4.2-5.4); White Blood Count 9.2 K/mm3 (4.5-10.0)
[2025-06-18 18:43] LABS: Alanine Aminotransferase 20 U/L (6-35); Albumin Level 4.5 g/dL (3.5-5.1); Alkaline Phosphatase 83 U/L (38-126); Anion Gap 6 mmol/L (4-12); Aspartate Amino Transferase 21 U/L (14-36); Bilirubin,Total 0.4 mg/dL (0.2-1.3); Blood Urea Nitrogen 18 mg/dL (7-17); Calcium 10.0 mg/dL (8.4-10.2); Carbon Dioxide 26 mmol/L (22-30); Chloride 107 mmol/L (98-107); Estimated CRCL calculation 61 ml/min; Estimated Glomerular Filt Rate > 60; Glucose 141 mg/dL (65-110); Potassium 3.9 mmol/L (3.4-5.0); Sodium 139 mmol/L (137-145); Total Protein 7.8 g/dL (6.3-8.2)
[2025-06-18] MEDS: IPRATROPIUM 0.5 MG/ALBUTEROL SULFATE 2.5 MG (BASE) AMPUL.NEB 3 ML INHALATION (20:42)
[2025-06-18 20:46] VITALS: PULSE 64; RESP 18
[2025-06-18 20:52] VITALS: PULSE 76; RESP 18
--- NOTE | 2025-06-18 21:32 | ED.SOB ---
HPI - SOB/Dyspnea General Chief Complaint: Shortness of Breath/Dyspnea Stated Complaint: pneumonia, not improving on meds Time Seen by Provider: 06/18/25 19:17 History of Present Illness HPI Narrative: Patient is a 74-year-old female who presents ER with cough. She has been feeling unwell for 1 week. She returned from [place] after being on a transatlantic cruise. She was seen by her PCP several days ago. She has been prescribed an antibiotic as well as steroids and albuterol. She continues to have head congestion and chest congestion with productive cough. No chest pain. No documented fevers. She reports there were sick people on her cruise who coughing regularly. Related Data Home Medications ?Medication ?Instructions ?Recorded ?Confirmed ?Last Taken ?Type ascorbic acid (vitamin C) 1,000 mg 1 g PO DAILY 06/19/23 06/16/25 Unknown History capsule aspirin 81 mg tablet,delayed 81 mg PO DAILY 06/19/23 06/16/25 Unknown History release (Adult Aspirin Regimen) calcium carbonate (Calcium 500) 500 mg PO DAILY 06/19/23 06/16/25 Unknown History cholecalciferol (vitamin D3) 50 50 mcg PO DAILY 06/19/23 06/16/25 Unknown History mcg (2,000 unit) capsule coenzyme Q10 200 mg capsule (Co 200 mg PO DAILY 06/19/23 06/16/25 Unknown History Q-10) zinc gluconate 30 mg tablet 30 mg PO DAILY 06/19/23 06/16/25 Unknown History Allergies Allergy/AdvReac Type Severity Reaction Status Date / Time codeine AdvReac Intermediate Nausea Verified 06/16/25 09:56 Review of Systems Review of Systems: All systems reviewed & are unremarkable except as noted in HPI and below Constitutional: Constitutional: Reports no additional constitutional complaints ENT: Reports system reviewed and no additional complaints, except as documented Cardiovascular: Cardiovascular: Reports no additional cardiovascular complaints Respiratory: Respiratory: Reports no additional respiratory complaints Musculoskeletal: Musculoskeletal: Reports no additional musculoskeletal complaints [facility] Past Medical History Medical History (Updated 06/18/25 @ 21:35 by Ramírez Dumont MD) Mixed hyperlipidemia Essential hypertension Aortic valve insufficiency Surgical History Surgical History History of knee replacement right 03/05/2024 left 08/20/2024 H/O bilateral oophorectomy H/O: hysterectomy Family History Family History Mother Carcinoma of colon Diabetes mellitus Hypertension Father Depression Heart disease Grandparent Alcohol abuse Diabetes mellitus Hypertension Heart disease Social History Social History Social History: quit 1979 Smoking status: Former smoker Smoking end date: 07/16/79 Alcohol intake: current Alcohol use details: rarely Substance use: never Substance use type: does not use Lack of Transportation: No Lack of Food: Sometimes True Current Housing: I Have Housing Concerned About Future Housing: No Difficulty Paying Gas/Electric Bills: No Difficulty Paying for Meds: No Currently Unemployed: No Education: Bachelor's Degree Difficulty w/ Childcare or Family Care: No Living arrangements: with family Exam Narrative: GENERAL: Well-appearing, well-nourished, and in no acute distress. HEAD: Normocephalic, atraumatic. ENT: Mucous membranes moist. CHEST: Scattered rales that clear with coughing. No respiratory distress. HEART: Regular rate and rhythm. Normal peripheral pulses. EXTREMITIES: Normal range of motion. No edema. SKIN: Warm, dry, no rash. NEURO: Alert and oriented x3. PSYCH: Normal mood and affect. Course Course Emergency Course: Informed of lab and imaging results. Given nebulizer treatment which the she thinks helps. She would like albuterol for home. Discharge. Vital Signs Vital signs: Vital Signs Temperature 98.5 F 06/18/25 17:20 Pulse Rate 83 06/18/25 17:20 Respiratory Rate 18 06/18/25 17:20 Blood Pressure 177/74 H 06/18/25 17:20 Pulse Oximetry 98 06/18/25 17:20 Oxygen Delivery Room Air 06/18/25 17:20 Temperature 98.5 F 06/18/25 17:20 Pulse Rate 76 06/18/25 20:52 Respiratory Rate 18 06/18/25 20:52 Blood Pressure 177/74 H 06/18/25 17:20 Pulse Oximetry 98 06/18/25 17:20 Oxygen Delivery Room Air 06/18/25 17:20 MDM Differential Diagnosis Differential Diagnosis: Pneumonia, URI, pneumothorax, congestive heart failure, ACS Lab Data MDM Lab Attestation statement: I personally reviewed the patient's lab results. 06/18/25 18:00 06/18/25 18:00 Labs: Lab Results 06/18/25 Range/Units 18:00 WBC 9.2 (4.5-10.0) K/mm3 RBC 5.06 (4.2-5.4) M/mm3 Hgb 15.7 H (12.0-15.0) g/dL Hct 46.0 (37.0-47.0) % MCV 90.9 (80-100) fl MCH 31.0 (26-34) pg MCHC 34.1 (32-36) g/dl RDW 13.5 (11.5-14.5) % Plt Count 198 (150-375) k/mm3 MPV 10.8 H (7.4-10.4) fl Immature Gran % (Auto) 0.8 H (0-0.5) % Neut % (Auto) 86.8 H (45.5-73.1) % Lymph % (Auto) 10.7 L (18.3-44.2) % [place] % (Auto) 1.5 L (2.6-8.5) % Eos % (Auto) 0.0 (0-4.4) % Baso % (Auto) 0.2 (0.2-1.2) % Lymph # (Auto) 0.98 (0.9-3.2) K/mm3 [place] # (Auto) 0.1 (0.1-0.6) K/mm3 Eos # (Auto) 0.0 (0-0.3) K/mm3 Baso # (Auto) 0.0 (0.0-0.1) K/mm3 Abs Immat Gran (auto) 0.07 H (0.00-0.031) K/mm3 Absolute Neuts (auto) 8.0 H (1.3-6.7) K/mm3 Absolute Nucleated RBC 0.000 (0.0-0.012) K/mm3 Nucleated RBC % 0.0 (0.0-0.2) % Sodium 139 (137-145) mmol/L Potassium 3.9 (3.4-5.0) mmol/L Chloride 107 (98-107) mmol/L Carbon Dioxide 26 (22-30) mmol/L Anion Gap 6 (4-12) mmol/L BUN 18 H (7-17) mg/dL Creatinine 0.77 (0.7-1.0) mg/dL Estim Creat Clear Calc 61 ml/min Estimated GFR > 60 (59 - ) Glucose 141 H (65-110) mg/dL Calcium 10.0 (8.4-10.2) mg/dL Total Bilirubin 0.4 (0.2-1.3) mg/dL AST 21 (14-36) U/L ALT 20 (6-35) U/L Alkaline Phosphatase 83 (38-126) U/L Total Protein 7.8 (6.3-8.2) g/dL Albumin 4.5 (3.5-5.1) g/dL Imaging Data Attestation: I personally reviewed and interpreted this imaging study as follows: Radiologist's impression: ITS Impressions Chest X-Ray 06/18/25 17:16 Impression: No acute cardiopulmonary abnormality. ECG Data EKG #1: Attestation: I personally reviewed and interpreted this ECG as follows: ECG completion date: 06/18/25 ECG completion time: 17:17 normal rate (75), sinus rhythm, non-specific ST changes, normal QRS and normal QT Discharge Plan Discharge Clinical Impression: Acute viral syndrome Patient Disposition: Home Condition: Stable Instructions: Viral Syndrome (ED) Additional Instructions: As discussed you have a viral illness. Unfortunately there are no specific medications we can give you to make the illness end faster. Antibiotics do not work for viral illnesses. However, you can take Acetaminophen or Ibuprofen to help with fevers and pain. Stay well hydrated and rested. Return to the emergency department if your fevers and chills continue to worse after 5 days, if you develop worsening cough with thick sputum, or are unable to stay hydrated. Contact your primary care provider in the next few days for a re-evaluation and to make sure your symptoms are improving. Patient Language: Korean Prescriptions: New albuterol sulfate 90 mcg/actuation HFA aerosol inhaler 4 puff inhalation QID PRN (Reason: shortness of breath or wheezing) Qty: 8.5 0RF No Action aspirin [Adult Aspirin Regimen] 81 mg tablet,delayed release (DR/EC) 81 mg PO DAILY coenzyme Q10 [Co Q-10] 200 mg capsule 200 mg PO DAILY ascorbic acid (vitamin C) 1,000 mg capsule 1 g PO DAILY calcium carbonate [Calcium 500] 500 mg calcium (1,250 mg) tablet,chewable 500 mg PO DAILY zinc gluconate 30 mg tablet 30 mg PO DAILY cholecalciferol (vitamin D3) 50 mcg (2,000 unit) capsule 50 mcg PO DAILY fluticasone furoate-vilanterol [Breo Ellipta] 200-25 mcg/dose blister with device 1 inh inhalation Q24H Qty: 60.0 1RF Rx Instructions: rinse mouth after use doxycycline monohydrate 100 mg capsule 100 mg PO BID Qty: 20 0RF Rx Instructions: tabs or caps prednisone 50 mg tablet 50 mg PO DAILY Qty: 5 0RF sertraline 50 mg tablet 50 mg PO DAILY Qty: 90 1RF lisinopril 5 mg tablet 5 mg PO DAILY Qty: 90 1RF rosuvastatin 5 mg tablet See Rx Instructions .ROUTE .COMPLEX Qty: 90 1RF Dose Instruction: Take 1 tablet by mouth once daily Rx Instructions: Take 1 tablet by mouth once daily cephalexin 500 mg capsule 500 mg PO Q8H Qty: 21 1RF Follow-up/Referrals: Courtney Nobles MD [Primary Care Provider, Family Practice] - 1 Week
== END 2025-06-18 21:38 | disposition home or self-care (01) ==
PROVIDERS: Emergency Provider Emergency Medicine; PCP Family Medicine
DX: B34.9 Viral infection, unspecified (principal); I10 Essential (primary) hypertension; E78.2 Mixed hyperlipidemia; I35.1 Nonrheumatic aortic (valve) insufficiency; Z96.653 Presence of artificial knee joint, bilateral; Z87.891 Personal history of nicotine dependence; Z90.722 Acquired absence of ovaries, bilateral; Z90.710 Acquired absence of both cervix and uterus; Z79.82 Long term (current) use of aspirin; Z79.899 Other long term (current) drug therapy; I45.10 Unspecified right bundle-branch block; R94.31 Abnormal electrocardiogram [ECG] [EKG]
CPT/HCPCS: 36415; 71046; 80053; 85025; 93005; 94640; 99284